=== PATIENT | male | born 2000 | race Caucasian/White ===

== ENCOUNTER 2020-12-30 16:46 | Emergency (ER) | payer OTHER ==
[~2020-12-30] VITALS: Ht 172.7 cm; Wt 67.3 kg
[2020-12-30] MEDS ORDERED: DEXAMETHASONE 4 MG TABLET PO ONE (17:00)
[2020-12-30] MEDS ORDERED: KETOROLAC 60 MG/2 ML VIAL. IM ONE (17:00)
--- NOTE | 2020-12-30 17:59 | PHYS DOC ---
Past Medical History Past Medical History: No Pertinent History Past Surgical History: Other Additional Past Surgical Histo: PENILE SX CHILD Smoking Status: Light Tobacco Smoker Additional Information: VAPE Alcohol Use: Occasionally Additional Information: 1-2 TIMES A WEEK General Adult EDM: Chief Complaint: KNEE INJURY HPI: HPI: 20-year-old male who denies any past medical history presents to the ED with complaints of left lateral knee pain while patient was wrestling with a friend, states he was participating in [employer] amd admits to drinking alcohol prior to ED arrival. States he heard a "pop." No h/o prior left knee injury. Den ies any history of fluoroquinolone use. Review of Systems: Review of Systems: Constitutional: Denies fever or chills. [] Eyes: Denies change in visual acuity. [] HENT: Denies nasal congestion or sore throat. [] Respiratory: Denies cough or shortness of breath. [] Cardiovascular: Denies chest pain or edema. [] GI: Denies abdominal pain, nausea, vomiting, : Denies anesthesia, urinary or bowel retention or incontinence Musculoskeletal: Denies back pain or cva tenderness Integument: Denies rash diaphoresis Neurologic: Denies headache, focal weakness or sensory changes. [] Endocrine: Denies polyuria or polydipsia. [] Lymphatic: Denies swollen glands. [] Psychiatric: Denies depression or anxiety. [] Heart Score: C/O Chest Pain: No Risk Factors: Risk Factors: DM, Current or recent (<one month) smoker, HTN, HLP, family history of CAD, obesity. Risk Scores: Score 0 - 3: 2.5% MACE over next 6 weeks - Discharge Home Score 4 - 6: 20.3% MACE over next 6 weeks - Admit for Clinical Observation Score 7 - 10: 72.7% MACE over next 6 weeks - Early Invasive Strategies Current Medications: Current Medications Medications (Trade) Dose Ordered Sig/Kimberley Start Time Stop Time Status Last Admin Dose Admin Dexamethasone (Decadron) 10 mg 1X ONCE 12/30/20 17:00 12/30/20 17:01 DC 12/30/20 17:19 10 MG Ketorolac Tromethamine (Toradol Im) 15 mg 1X ONCE 12/30/20 17:00 12/30/20 17:01 DC 12/30/20 17:20 15 MG Allergies: Allergies: Allergies Coded Allergies Type Severity Reaction Last Updated Verified No Known Drug Allergies 12/30/20 No Physical Exam: PE: Constitutional: Well developed, well nourished, in pain/uncomfortable on arrival, non-toxic appearance, physically fit HENT: Normocephalic, atraumatic, no signs of head trauma Eyes: EOMI, conjunctiva normal, no discharge. Neck: Normal range of motion, supple, no midline neck pain Cardiovascular: S1/2 present, regular rhythm Lungs & Thorax: Speaking in full sentences, bilateral equal chest rise, no tachypnea or increased work of breathing Abdomen: soft, no tenderness, Skin: Warm, dry, no erythema, no rash. 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 [] Psychologic: Affect normal, judgement normal, mood normal. [] Current Patient Data: Vital Signs: Vital Signs Date Time Temp Pulse Resp B/P (MAP) Pulse Ox O2 Delivery O2 Flow Rate FiO2 12/30/20 16:46 98.2 83 16 132/76 (94) 98 Room Air 98.2 EKG: EKG: [] Radiology/Procedures: Radiology/Procedures: IMAGING REPORT Signed PATIENT: PRATEEK DENISE ACCOUNT: [id number] : 2000 LOCATION: ER AGE: 20 SEX: M EXAM STATUS: REG ER ORD. PHYSICIAN: AUGUSTA WALLACE DO REASON: knee pain, s/p lateral patella disloc PROCEDURE: KNEE LEFT 3V 3 view study of the left knee Clinical indications: Left knee pain. Status post lateral patellar dislocation. FINDINGS: No acute fracture or dislocation or lytic process is seen. No left knee joint effusion is seen. IMPRESSION: No acute osseous abnormality. Electronically signed by: Aldo Bettencourt MD (12/30/2020 6:02 PM) [id number] DICTATED and SIGNED BY: ALDO BETTENCOURT MD DATE: 12/30/20 [id number] 0 Course & Med Decision Making: Course & Med Decision Making Pertinent Labs and Imaging studies reviewed. (See chart for details) Concern for left lateral patellar dislocation easily reduced by myself upon ED arrival w/significant pain relief. No posterior knee pain. Low suspicion for any popliteal injury. Popliteal artery, DP and PT pulses of left lower extrem ity intact with normal skin turgor and cap refill. Patient able to fully bend/flex/extend left knee with no hip or ankle pain. Knee immobilizer provided. Patient declines crutches, has them at home. Understands no weightbearing if in pain, or cleared by orthopedic surgery. Will discharge home with strict ED return precautions were given for recurrent knee dislocation, severe pain, neurologic deficits or skin color changes. Encouraged urgent outpatient follow-up with PMD and orthopedic surgery for definitive management in 1-2 weeks. Life-threatening processes were considered but are low suspicion at this time, given history, physical exam and ED workup. Pt was educated on all prescription medications and adverse effects. All patient's questions were an swered and pt was stable at time of discharge. Life/limb-threatening differential includes but is not limited to, avascular nec rosis, septic arthritis, malignancy, compartment syndrome, fracture/ligamentous injury/overuse, decompression sickness, seronegative spondyloarthropathies, trauma including dislocation/fracture, Lyme disease, lupus, arthritis differentials, gout/pseudogout or decompression sickness. I spoken with the patient and her caregivers. I explained the patient's condition, diagnoses and treatment plan based on the information available to me at this time. I have answered the patient and her caregiver's questions and addressed any concerns. The patient and her caregivers have a good understanding of patient's diagnosis, condition and treatment plan as can be expected at this point. Vital signs have been stable. Patient's condition is stable and appropriate for discharge from the emergency department. Patient will pursue further outpatient evaluation with primary care physician or other designated or consulting physician as outlined in the discharge instructions. The patient and/or caregivers are agreeable to this plan of care and follow-up instructions have been explained in detail. The patient and/or caregivers have received these instructions in written form and have expressed an understanding of the discharge instructions. The patient and/or caregivers are aware that any significant change of condition or worsening of symptoms should prompt immediate return to this or the closest emergency department or call to 911. Rhiannon Disclaimer: Rhiannon Disclaimer: This electronic medical record was generated, in whole or in part, using a voice recognition dictation system. Departure Departure Impression: Primary Impression: Lateral dislocation of left patella, initial encounter Additional Impressions: Closed dislocation of left patella Traumatic dislocation of left patella Disposition: HOME / SELF CARE / HOMELESS Condition: STABLE Referrals: NON,STAFF (PCP) Follow-up with your primary care physician for routine preventative care or FOLLOW UP WITH FAMILY MEDICINE: [address] [place] [address] Patient Instructions: Crutch Use, Knee - Patella Problems, Patellar Dislocation, RICE - Routine Care for Injuries Additional Instructions: FOLLOW UP WITH ORTHOPEDICS: For definitive management patellar tendon dislocation, if pain persists he may benefit from an MRI of the knee Orthopaedic Sports Medicine Orthopaedic Surgery [facility] [address] [place] [address] OR [facility] [address] [place] [address] EMERGENCY DEPARTMENT GENERAL DISCHARGE INSTRUCTIONS Thank you for coming to [facility] Emergency Department (ED) today and trusting us with you care. We trust that you had a positive experience in our Emergency Department. If you wish to speak to the department management, you may call the Director at [phone]. YOUR FOLLOW UP INSTRUCTIONS ARE FOLLOWS: 1. Do you have a private Doctor? If you do not have a private doctor, please ask for a resource list of physicians or clinics that may be able to assist you with follow up care. 2. The Emergency Physicain has interpreted your x-rays. The X-Ray specialist will also review them. If there is a change in the findings, you will be notified in 48 hours when at all possible. 3. A lab test or culture has been done, your results will be reviewed and you will be notified if you need a change in treatment. ADDITIONAL INSTRUCTIONS AND INFORMATION: 1. Your care today has been supervised by a physician who is specially trained in emergency care. Many problems require more than one evaluation for a complete diagnosis and treatment. We recommend that you schedule your follow up appointment as recommended to ensure complete treatment of you illness or injury. If you are unable to obtain follow up care and continue to have a problem, or if your condition worsens, we recommend that you return to the ED. 2. We are not able to safely determine your condition over the phone nor are we able to give sound medical advice over the phone. For these safety reasons, if you call for medical advice we will ask you to come to the ED for further evaluation. 3. If you have any questions regarding these discharge instructions please call the ED at [phone]. SAFETY INFORMATION: In the interest of safety, wellness, and injury prevention; we encourage you to wear your sealbelt, if you smoke; quite smoking, and we encourage family to use a protective helmet for bicycling and other sporting events that present an increased risk for head injury. IF YOUR SYMPTOMS WORSEN OR NEW SYMPTOMS DEVELOP, OR YOU HAVE CONCERNS ABOUT YOUR CONDITION; OR IF YOUR CONDITION WORSENS WHILE YOU ARE WAITING FOR YOUR FOLLOW UP APPOINTMENT; EITHER CONTACT YOUR PRIMARY CARE DOCTOR, THE PHYSICIAN WHOSE NAME AND NUMBER YOU WERE GIVEN, OR RETURN TO THE ED IMMEDIATELY. AUGUSTA LEVY DO December 30, 2020 17:59
[2020-12-30 18:00] VITALS: BP 119/76
--- NOTE | 2020-12-30 18:04 | RAD ---
3 view study of the left knee Clinical indications: Left knee pain. Status post lateral patellar dislocation. FINDINGS: No acute fracture or dislocation or lytic process is seen. No left knee joint effusion is s een. IMPRESSION: No acute osseous abnormality. Electronically signed by: Cuba Bettencourt MD (12/30/2020 6:02 PM) [id number]
== END 2020-12-30 18:15 | disposition home or self-care (01) ==
LOC: ER 16:46
DX: S83.015A Lateral dislocation of left patella, initial encounter (principal); Z72.0 Tobacco use; X50.9XXA Other and unspecified overexertion or strenuous movements or postures, initial encounter; Y93.72 Activity, wrestling; Y92.89 Other specified places as the place of occurrence of the external cause; Y99.8 Other external cause status
CPT/HCPCS: 29505; 73562; 96372; 99283; J1885

== ENCOUNTER → 2021-01-09 | Outpatient (CLI) | payer OTHER ==
[2020-12-30 18:00] VITALS: BP 119/76
--- NOTE | 2021-01-09 11:40 | KCIC ---
Exam Date: 01/09/2021 8:35 AM MRI LEFT LOWER EXTREMITY JOINT WITHOUT Indication: Reason: LEFT KNEE PAIN / Spl. Instructions: / History: Left knee pain/swelling after dis locating patella 10 days ago. TECHNIQUE: Routine multiplanar MR imaging of the knee was performed without contrast. COMPARISON: December 30, 2020 radiographs FINDINGS: Focal marrow edema consistent with bone contusion is seen involving the lateral aspect of the lateral femoral condyle and the medial patella. There is complete disruption of the medial patella retinacul um at its femoral attachment. Findings are consistent with transient lateral patellar dislocation. Th e patella is in the normal position on the current exam. No fracture line is identified. There is a small joint effusion. There is a large collection superficial to the patella and patellar tendon measuring 9.4 x 9.4 x 1.7 cm consistent with a hematoma or Luna Lavalee lesion. The medial and lateral menisci are intact and within normal limits for age. The anterior cruciate ligament, posterior cruciate ligament, medial collateral ligament, and lateral collateral ligament complex are intact. Patellofemoral extensor mechanism and popliteus tendon are w ithin normal limits. No full thickness chondral defects are identified. There is a very small popliteal cyst. IMPRESSION: There is evidence for transient lateral patellar dislocation, with bone contusions involving the late ral femoral condyle and medial patella, as well as complete disruption of the medial patella retinacu lum. There is a large collection superficial to the patella and patellar tendon consistent with a hem atoma or Luna Lavalee lesion. Electronically signed by: Lester Mason MD (01/09/2021 11:38 AM) [id number]
== END ==
LOC: KCIC MRI 08:29
PROVIDERS: ATTEND Nurse Practitioner Family
DX: S89.92XA Unspecified injury of left lower leg, initial encounter (principal); X58.XXXA Exposure to other specified factors, initial encounter; Y93.89 Activity, other specified; Y92.89 Other specified places as the place of occurrence of the external cause; Y99.8 Other external cause status
CPT/HCPCS: 73721